=== PATIENT | female | born 1970 | race Caucasian/White ===

== ENCOUNTER → 2016-08-31 | Outpatient (CLI) | payer OTHER ==
[~2016-08-31] MED LIST: ANTIVERT PO; BACTRIM DS TABL1 TA1 PO; FLAGYL PO; KETOPROFEN PO; NO MEDICATIONS; PHENERGAN PR; PYRIDIUM PO
--- NOTE | ~2016-08-31 | MY6 ---
[facility] A Service of [facility] & [facility] RADIOLOGY TEXT RESULTS PATIENT: SNOW BARBOZA LOCATION: [facility] : 71 UNIT #: [id number] AGE: [address]: ADRIEL KRISHNAN MD SEX: F ORDER DR: [id number] [facility] [address] [facility] [place] [facility]. [place], [place] [address] [id number] O MR#: [id number] Acc #: [id number] NAME: SNOW BARBOZA : 1970 SEX: F STUDY DATE/TIME: 08/31/2016 8:10 UNIT: [facility] ROOM: STUDY DESCRIPTION: MY Mammogram Dx Dig Umberto Attending Physician: Adriel Krishnan M.D. Referring Physician: Adriel Krishnan M.D. Ordering Physician: Adriel Krishnan M.D. MEDICAL IMAGING REPORT This report is preliminary unless electronic signature is present REVISED REPORT SEE ADDENDUM EXAM Bilateral digital diagnostic mammogram with CAD and targeted left breast ultrasound, 08/31/2016 INDICATION 45-year-old female with a history of mastitis, redness and swelling of the left breast since last . Left breast mass. No personal or family history of breast cancer. No surgeries. TECHNIQUE CC, MLO and true lateral views of the breasts were obtained and reviewed with an FDA-approved CAD device. Targeted ultrasound of the left breast was also performed. Targeted ultrasound of the lower inner hemisphere right breast was also performed. This is the patient's first mammogram. There are no comparisons. FINDINGS The left breast is larger than the right. Mild edematous changes are present in the left breast. There is some asymmetric edematous change of the nipple areolar complex on the left. A marker overlies the area of palpable concern on the left. There is increased asymmetric density in the central upper hemisphere left breast localizing to about 12 o'clock. There are no associated microcalcifications. No adenopathy. On the right, there are subtle serpiginous densities in the lower inner hemisphere extending towards the nipple. Targeted ultrasound of both breasts was thereafter performed. ULTRASOUND: The patient was initially scanned independently by the technologist and then rescanned in my presence. [facility] A Service of [facility] RADIOLOGY TEXT RESULTS PATIENT: SNOW BARBOZA LOCATION: [facility] : 72 UNIT #: [id number] AGE: [address]: ADRIEL KRISHNAN MD SEX: F ORDER DR: LEFT BREAST: Physical exam (with patient consent) of the left breast was performed. On visual inspection, the left breast is larger than the right. There is edematous change and redness in the left breast primarily localizing to the upper hemisphere. There is a palpable mass in the upper hemisphere left breast at about 11-12 o'clock extending to the nipple-areolar complex. No distinct skin thickening identified on physical exam. Ultrasound of the left breast demonstrates edematous change throughout the upper hemisphere. In the 12 o'clock position, there is a hypoechoic solid mass with internal color-flow. This is better appreciated under real-time surveillance, but measures at least 10 x 12 mm. It is approximately 4 cm from the nipple. This does not have imaging features suggestive of a fluid collection or abscess and actually appears to represent a solid mass. Imaging findings are concerning for malignancy, perhaps an inflammatory breast cancer given the constellation of findings in this patient. Edematous changes are present throughout the upper hemisphere. No additional cystic or solid mass clearly identified. Imaging findings between mammography and ultrasound are concordant. RIGHT BREAST: Imaging of the lower inner hemisphere right breast was also performed. It demonstrates prominent ducts in the 3 o'clock through the 6 o'clock position coursing towards the nipple areolar complex. Some of the ducts have a scant amount of debris within them but there is no distinct mass or internal color-flow. 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 Imaging features on the left are suspicious for malignancy. Differential technically also includes the possibility of mastitis/infection. The patient was started on antibiotics last evening. Ultrasound-guided core biopsy of the mass in the 11 o'clock position left breast is recommended for further assessment. The patient's breast is extremely tender at this time and tolerance of the procedure at this point would be challenging for the patient. I have suggested that the patient continue her antibiotic therapy with the hopes of decreasing the inflammatory change in the left breast to at least some degree prior to biopsy. The biopsy however should be performed at the earliest convenience for the patient. I have attempted to reach Dr. Krishnan, the ordering physician, regarding the recommendation for biopsy. She is not in the office this morning. I have spoken to her office staff and requested a return phone call to my personal cell phone to discuss the findings and recommendations in the case. I have marked this a STAT dictation. We will facilitate scheduling the ultrasound-guided core biopsy for the patient at her earliest convenience. IMPRESSION 1. Abnormal examination. Please see the full dictated report. There are inflammatory changes in the left breast primarily localizing to the upper hemisphere left breast. The patient has been preliminarily diagnosed with mastitis and started on antibiotic therapy last night. [facility] A Service of [facility] RADIOLOGY TEXT RESULTS PATIENT: SNOW BARBOZA [id number] 72 UNIT #: [id number] AGE: [address]: ADRIEL KRISHNAN MD SEX: F ORDER DR: However, in the upper hemisphere left breast there is a suspicious solid appearing mass at 11 o'clock, that warrants further evaluation with ultrasound-guided core biopsy. This should be performed at the earliest convenience for the patient when her pain tolerance allows for the biopsy. Findings and recommendations were discussed with the patient. Efforts are underway to speak personally with Dr. Krishnan, the ordering physician, regarding findings and recommendations for biopsy as well. I have marked this a STAT dictation. See discussion above. 2. Findings in the left breast could reflect mastitis but are also now more concerning for potential inflammatory breast cancer given the presence of the mass in the 11 o'clock position left breast. 3. There is ductal ectasia in the lower inner hemisphere right breast confirmed with mammography and ultrasound. This is a benign finding. Patients over the age of 40 are entered into a reminder system with target due date for the next mammogram. A result letter will also be sent to the patient. BIRADS: 4 Suspicious abnormality - Biopsy should be considered STAT * RESULT Dictated by... Zak Cam M.D. Paulette TD: 08/31/2016 09:57 JOB #: [id number] ADDENDUM Recommendation for ultrasound-guided core biopsy of the suspicious mass in the 11 o'clock position left breast and findings suspicious for inflammatory breast cancer have now been discussed personally by telephone with the ordering physician, Dr. Adriel Krishnan, at approximately 10 o'clock this morning. Efforts underway to get the patient scheduled for the ultrasound-guided core biopsy at her earliest convenience. STAT * RESULT [facility] A Service of [facility] & [facility] RADIOLOGY TEXT RESULTS PATIENT: SNOW BARBOZA LOCATION: [facility] : 71 UNIT #: [id number] AGE: [address]: ADRIEL KRISHNAN MD SEX: F ORDER DR: Dictated by... Zak Cam M.D. THIS IS AN ELECTRONICALLY VERIFIED REPORT Zak Cam M.D. at 08/31/2016 4:51 PM Kvng TD: 08/31/2016 10:17 JOB #: [id number] CC: Kaleb/haritha Please Delete MEDICAL IMAGING REPORT COPY
--- NOTE | ~2016-08-31 | US17 ---
[facility] A Service of [facility] RADIOLOGY TEXT RESULTS PATIENT: SNOW BARBOZA LOCATION: [facility] : 71 UNIT #: [id number] AGE: [address]: ADRIEL KRISHNAN MD SEX: F ORDER DR: [id number] [place], [place] [address] [id number] O MR#: [id number] Acc #: [id number] NAME: SNOW BARBOZA : 1970 SEX: F STUDY DATE/TIME: 08/31/2016 8:36 UNIT: [facility] ROOM: STUDY DESCRIPTION: US Breast Bilateral Attending Physician: Adriel Krishnan M.D. Referring Physician: Adriel Krishnan M.D. Ordering Physician: Adriel Krishnan M.D. MEDICAL IMAGING REPORT This report is preliminary unless electronic signature is present EXAM Targeted ultrasound of the left and right breast 08/31/2016 INDICATION Correlation with diagnostic mammography same date. FINDINGS Result text under the Bilateral diagnostic mammogram examination. Please see that examination for full report. BIRADS: 4 Suspicious abnormality; biopsy should be considered. STAT * RESULT Dictated by... Zak Cam M.D. THIS IS AN ELECTRONICALLY VERIFIED REPORT Zak Cam M.D. at 09/01/2016 7:27 AM Maxine TD: 08/31/2016 10:46 JOB #: [id number] MEDICAL IMAGING REPORT COPY
== END | disposition home or self-care (01) ==
LOC: CWCC 07:33
DX: N61.0 Mastitis without abscess (principal); N63 Unspecified lump in breast; N60.41 Mammary duct ectasia of right breast; Z79.2 Long term (current) use of antibiotics
CPT/HCPCS: 76641; G0204

== ENCOUNTER → 2016-09-09 | Outpatient (CLI) | payer OTHER ==
--- NOTE | ~2016-09-09 | US200 ---
[facility] A Service of [facility] & [facility] RADIOLOGY TEXT RESULTS PATIENT: SNOW BARBOZA LOCATION: [facility] : 71 UNIT #: [id number] AGE: [address]: ADRIEL KRISHNAN MD SEX: F ORDER DR: [id number] [facility]. [place], [place] [address] [id number] O MR#: [id number] Acc #: [id number] NAME: SNOW BARBOZA : 1970 SEX: F STUDY DATE/TIME: 09/09/2016 15:22 UNIT: [facility] ROOM: STUDY DESCRIPTION: US Breast Guided Bx 1st Lesion Attending Physician: Adriel Krishnan M.D. Referring Physician: Adriel Krishnan M.D. Ordering Physician: Adriel Krishnan M.D. Primary Care Physician: Adriel Krishnan M.D. MEDICAL IMAGING REPORT This report is preliminary unless electronic signature is present REVISED REPORT SEE ADDENDUM EXAMS Ultrasound-guided core biopsy of a left breast and ultrasound guided clip placement procedure, left breast. CLINICAL HISTORY Mastitis. PROCEDURE DATED 09/09/2016 FINDINGS The patient's prior imaging studies were reviewed. She was deemed an adequate candidate for the procedure. Survey images of the upper hemisphere left breast confirmed the presence of the solid suspicious hypoechoic nodule in the 11 o'clock position measuring about 6 x 6 mm. It was adequately visualized to proceed. Procedure and risks were explained to the patient. The risks included but not limited to bleeding, infection, and damage to adjacent structures. The patient gave both oral and written consent to proceed and the consent form signed and on the chart prior to the procedure. Prior to the procedure a "time-out" protocol was also followed to confirm patient identity and procedure details. Edematous changes in the left breast demonstrated improvement since the prior mammogram last week following antibiotic therapy. This was also evident on the subsequent clip placement mammogram performed following the procedure. The left breast was prepped and draped in the usual sterile fashion. Maximum sterile-barrier technique appropriate for procedure guidelines was utilized. This included the use of sterile gloves, STS. [facility] A Service of [facility] RADIOLOGY TEXT RESULTS PATIENT: SNOW BARBOZA LOCATION: [facility] : 71 UNIT #: [id number] AGE: [address]: ADREIL KRISHNAN MD SEX: F ORDER DR: sterile instruments, and sterile barriers. Local anesthesia was achieved with about 4 mL of a buffered 1% lidocaine solution. Thereafter, a small dermotomy was performed and a 14-gauge core biopsy device was advanced to the margin of the nodule. Appropriate needle location was documented with ultrasound throughout and images demonstrating appropriate needle placement were saved to the PACS system. 3 separate passes were made through the nodule. 3 separate specimens were placed in formalin solution for pathologic analysis. Thereafter, using the same skin entrance site, a radiopaque metallic biopsy clip introducer was advanced to the margin of the nodule. Appropriate needle location was documented with ultrasound throughout. Images demonstrating appropriate placement were saved to the PACS system. Thereafter, the biopsy clip was deployed within the mass on ultrasound and seen to be in good position. Clip placement mammogram demonstrating appropriate clip placement in the 11-12 o'clock position posterior left breast although no distinct mass is identified mammographically. The patient tolerated the procedure well. No immediate post-procedure complications. Pathology results are pending. Please see the final pathology report for further details. Appropriate aftercare instructions have been provided to the patient. IMPRESSION 1. Successful ultrasound-guided core biopsy of a suspicious mass in the posterior 11 o'clock position left breast. No immediate post-procedure complications. Pathology results are pending. Please see the final pathology report for further details. 2. Successful ultrasound-guided clip placement within the mass under ultrasound. Appropriate clip placement confirmed with a clip placement mammogram. Patients over the age of 40 are entered into a reminder system with target due date for the next mammogram. A result letter will also be sent to the patient. BIRADS: 4 Suspicious abnormality; biopsy should be considered. Dictated by... Zak Cam M.D. THIS IS AN ELECTRONICALLY VERIFIED REPORT Zak Cam M.D. at 09/10/2016 10:32 PM JLDavina TD: 09/09/2016 18:24 JOB #: [id number] [facility] A Service of [facility] RADIOLOGY TEXT RESULTS PATIENT: SNOW BARBOZA LOCATION: [facility] : 72 UNIT #: [id number] AGE: [address]: ADRIEL KRISHNAN MD SEX: F ORDER DR: ADDENDUM Pathology results are now available from the biopsy. Pathology indicates segments of breast tissue containing prominent periductal and lobular mixed inflammation consisting of acute inflammation lymphoplasmacytic and histiocytic infiltrates. Granulomatous inflammation is not identified. Malignancy is not identified. Although pathology results are negative for malignancy, imaging features demonstrate a concerning hypoechoic vascular mass was biopsied and given the possibility of discordant pathology and imaging findings, surgical excision is recommended. This could best be accomplished with mammographic needle localization technique. Findings regarding recommendation for localization and surgical excision have been personally telephoned to and discussed with the ordering physician Adriel Krishnan M.D. at the time of this addendum. STAT * RESULT Dictated by... Zak Cam M.D. THIS IS AN ELECTRONICALLY VERIFIED REPORT Zak Cam M.D. at 09/30/2016 7:41 AM Vickie TD: 09/27/2016 15:49 JOB #: [id number] CC: Kaleb/[email or web address] Please Delete MEDICAL IMAGING REPORT Page 1 of 1 COPY
--- NOTE | ~2016-09-09 | MY14 ---
[facility] A Service of [facility] RADIOLOGY TEXT RESULTS PATIENT: SNOW BARBOZA LOCATION: [facility] : 72 UNIT #: [id number] AGE: [address]: ADRIEL KRISHNAN MD SEX: F ORDER DR: [id number] [facility]. [place], [place] [address] [id number] O MR#: [id number] Acc #: [id number] NAME: SNOW BARBOZA : 1970 SEX: F STUDY DATE/TIME: 09/09/2016 16:29 UNIT: [facility] ROOM: STUDY DESCRIPTION: MY Post Bx Film Attending Physician: Adriel Krishnan M.D. Referring Physician: Adriel Krishnan M.D. Ordering Physician: Adriel Krishnan M.D. Primary Care Physician: Adriel Krishnan M.D. MEDICAL IMAGING REPORT This report is preliminary unless electronic signature is present EXAM Post biopsy film, left breast, 09/09/2016. HISTORY Clip placement mammogram following ultrasound-guided core biopsy. TECHNIQUE CC and true lateral views, left breast, were obtained and reviewed with an FDA-approved CAD device. COMPARISON 08/31/2016 FINDINGS The biopsy clip is at the 11-12 o'clock position posteriorly. It is concordant with the position of the superior mass sampled with ultrasound guidance. There is no distinct nodule or mass identified mammographically. However, the clip was clearly placed within the sampled mass on ultrasound. Please see the separately dictated ultrasound-guided core biopsy report for further details and the final pathology report for further details. Pathology results are pending at this time. IMPRESSION Clip placement mammogram demonstrates appropriate clip placement in the 11-12 o'clock posterior left breast. Pathology results are pending. See discussion above. Patients over the age of 40 are entered into a reminder system with target due date for the next mammogram. A result letter will also be sent to the patient. BIRADS: 4 Suspicious abnormality; biopsy should be considered. [facility] A Service [facility] RADIOLOGY TEXT RESULTS PATIENT: SNOW BARBOZA LOCATION: [facility] #: [id number] : 72 UNIT #: [id number] AGE: [address]: ADRIEL KRISHNAN MD SEX: F ORDER DR: Dictated by... Zak Cam M.D. THIS IS AN ELECTRONICALLY VERIFIED REPORT Zak Cam M.D. at 09/10/2016 10:31 PM Kiesha TD: 09/09/2016 18:07 JOB #: [id number] MEDICAL IMAGING REPORT Page 1 of 1 COPY
== END | disposition home or self-care (01) ==
LOC: CWCC 14:26
DX: N61.0 Mastitis without abscess (principal); N63 Unspecified lump in breast
CPT/HCPCS: 88305; G0204